=== PATIENT | male | born 1965 | race African-American/Black ===

== ENCOUNTER 2019-12-28 07:13 | Emergency (ER) | payer OTHER ==
[~2019-12-28] VITALS: Ht 180.3 cm; Wt 96.2 kg
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
[2019-12-28] MEDS ORDERED: IBUPROFEN 400 MG TABLET PO ONE (07:30)
[2019-12-28] MEDS ORDERED: ACETAMINOPHEN 325 MG TABLET PO ONE (07:30)
[2019-12-28] MEDS ORDERED: ACETAMINOPHEN ES 500 MG TABLET ONE (07:30)
[2019-12-28] MEDS ORDERED: IBUPROFEN 400 MG TABLET ONE (07:30)
--- NOTE | 2019-12-28 08:33 | NUR ---
PD AT BEDSIDE.
--- NOTE | 2019-12-28 08:47 | NUR ---
Patient discharged to home in stable condition. Written and verbal after care instructions given. Patient verbalizes understanding of instruction.
[2019-12-28 08:48] VITALS: BP 160/93
== END 2019-12-28 08:48 | disposition home or self-care (01) ==
LOC: ER 07:15
DX: S46.812A Strain of other muscles, fascia and tendons at shoulder and upper arm level, left arm, initial encounter (principal); V49.49XA Driver injured in collision with other motor vehicles in traffic accident, initial encounter; Y93.89 Activity, other specified; Y92.488 Other paved roadways as the place of occurrence of the external cause; Y99.8 Other external cause status
CPT/HCPCS: 73030-TC